=== PATIENT | male | born 1975 | race Caucasian/White ===

== ENCOUNTER 2022-03-11 14:09 | Emergency (ER) | payer BC ==
[2022-03-11] MEDS ORDERED: Furosemide 100 MG/10 ML SDV IVPUSH ONE (14:25)
[2022-03-11] MEDS ORDERED: Furosemide 100 MG/10 ML SDV ONE (14:28)
[2022-03-11] MEDS ORDERED: Furosemide 40 MG/4 ML VIAL IVPUSH ONE (14:29)
[2022-03-11] MEDS ORDERED: propofoL 100 ML ONE (14:35)
[2022-03-11] MEDS ORDERED: propofoL 100 ML IV SCH (14:40)
[2022-03-11] MEDS ORDERED: Norepinephrine 4 MG in Dextrose 5% in Water 246 ML IV SCH ×2 (15:30)
== END 2022-03-11 16:20 ==
LOC: JD.ED 14:09
DX: J81.0 Acute pulmonary edema (principal); J34.2 Deviated nasal septum; R84.9 Unspecified abnormal finding in specimens from respiratory organs and thorax
CPT/HCPCS: 31500; 36415; 36600; 43752; 51702; 70450; 71045; 80053; 82553; 82803; 83735; 83880; 84484; 85025; 92950; 93005; 96365; 96375; 99285; J1940; J2704; J7060; J3490